=== PATIENT | male | born 1990 | race Caucasian/White ===

== ENCOUNTER → 2017-08-20 | Outpatient (CLI) | payer OTHER ==
--- NOTE | 2017-08-20 09:21 | DIAGNOSTIC IMAGING REPORT ---
CHEST MRI WITHOUT CONTRAST HISTORY: Left pectoralis pain. LEFT PECTORALIS MUSCLE INJURY,EVAL RUPTURE TECHNIQUE: Multiplanar multisequence MRI of the left chest was performed without the use of intravenous contrast. COMPARISON STUDY: None. FINDINGS: Best seen on axial image 33 and coronal image 11 there is focal small full-thickness tear at the musculotendinous junction of the sternal head of the left pectoralis major muscle. This involves the inferior 50% fibers at the musculotendinous junction. The more superior fibers of the sternal head remain intact. There is associated edema at the torn musculotendinous junction which demonstrate up to 2 cm of retraction. The total area of edema at the sternal head of the left pectoralis major muscle measures approximately 4 cm in length. No large hematoma identified. The remaining portions of the left pectoralis major tendon are intact and attached to the proximal humerus. IMPRESSION: There are is focal small full-thickness tear at the musculotendinous junction of the sternal head of the left pectoralis major muscle. This involves the inferior 50% fibers at the musculotendinous junction which demonstrates up to 2 cm of retraction. Electronically signed by: Kai Christopher M.D. 08/20/2017 9:19 AM Dictated Date/Time: 08/20/2017 9:07 AM
== END | disposition home or self-care (01) ==
LOC: C.MRIBC 07:29
PROVIDERS: ATTEND Family Medicine
DX: S29.011A Strain of muscle and tendon of front wall of thorax, initial encounter (principal); X58.XXXA Exposure to other specified factors, initial encounter